=== PATIENT | female | born 2000 | race African-American/Black ===

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

== ENCOUNTER 2019-01-21 19:58 | Emergency (ER) | payer OTHER, SELFPAY ==
--- NOTE | 2019-01-21 20:40 | RAD ---
XR Chest Pa Lat STANDARD History: Chest pain Comparison: None. Findings: Lungs are clear. No pneumothorax or effusion. Cardiac silhouette and mediastinal contours a re within normal limits. No acute osseous abnormality. Impression: No acute intrathoracic abnormality.
[2019-01-21] MEDS ORDERED: Lidocaine Viscous Sol 2% 15 ml UD Cup ONE (20:58)
[2019-01-21] MEDS ORDERED: Ketorolac Tromethamine 30 MG/ML VIAL ONE (20:58)
[2019-01-21] MEDS ORDERED: Mag-Al Plus 1200 MG/1200 MG/120 MG/30 ML UDCUP ONE (20:58)
== END 2019-01-21 21:27 | disposition home or self-care (01) ==
LOC: SCSER 19:58
DX: R07.9 Chest pain, unspecified (principal)
CPT/HCPCS: 71046; 93005; 96372; J1885

== ENCOUNTER 2022-12-05 16:39 | Emergency (ER) | payer SELFPAY ==
[2022-12-05] MEDS ORDERED: Ibuprofen 200 MG TAB ONE (18:08)
== END 2022-12-05 19:43 | disposition short-term general hospital (02) ==
LOC: ERS 16:39
DX: M54.2 Cervicalgia (principal); M54.6 Pain in thoracic spine
CPT/HCPCS: 72072